=== PATIENT | female | born 1985 | race Caucasian/White ===

== ENCOUNTER 2017-07-14 15:39 | Emergency (ER) | payer SELFPAY ==
[~2017-07-14] VITALS: Ht 154.9 cm; Wt 56.7 kg
[~2017-07-14 15:39] MED LIST: LEVE500T13 PO
[2017-07-14 15:53] VITALS: BP_SYST 106
[2017-07-14] MEDS ORDERED: KETOROLAC TROMETHAMINE 30 MG VIAL IVP ONE (16:30)
[2017-07-14 16:46] LABS: BASOPHILS % (AUTO) 0.4 % (0.0-2.0); EOSINOPHILS # (AUTO) 0.3 K/uL (0.0-0.4); HEMATOCRIT 30.5 % (36-48); HEMOGLOBIN 10.3 g/dL (12.0-16.0); LYMPHOCYTES # (AUTO) 1.5 K/uL (1.0-5.5); LYMPHOCYTES % (AUTO) 17.7 % (20.5-51.5); MEAN CORPUSCULAR HEMOGLOBIN 29 pg (27-31); MEAN CORPUSCULAR HGB CONC 34 % (32-36); MEAN CORPUSCULAR VOLUME 86 fL (79.0-98.0); MONOCYTES # (AUTO) 0.4 K/uL (0.0-1.0); MONOCYTES % (AUTO) 4.1 % (1.7-9.3); NEUTROPHILS # (AUTO) 6.5 K/uL (1.8-7.7); NEUTROPHILS % (AUTO) 73.8 % (40.0-70.0); PLATELET COUNT (AUTO) 294 K/uL (130-430); RED BLOOD CELL COUNT(AUTO) 3.56 MIL/uL (4.2-6.2); RED CELL DISTRIBUTION WIDTH 14.4 % (9.0-15.0); WHITE BLOOD COUNT (AUTO) 8.7 K/uL (4.8-10.8)
[2017-07-14 17:02] LABS: CALCIUM 9.3 mg/dL (8.4-11.0); CREATININE 0.54 mg/dL (0.55-1.30)
[2017-07-14 17:06] LABS: ALBUMIN 3.4 g/dL (3.4-4.8); TOTAL BILIRUBIN 0.3 mg/dL (0.0-1.0)
[2017-07-14 18:05] VITALS: BP_SYST 113
== END 2017-07-14 18:00 | disposition home or self-care (01) ==
LOC: SED 15:39
DX: K80.50 Calculus of bile duct without cholangitis or cholecystitis without obstruction (principal); Z98.890 Other specified postprocedural states
CPT/HCPCS: 36415; 76700; 80053; 83690; 85025; 96374; 99285; J1885